=== PATIENT | male | born 2000 | race Two or more races ===

== ENCOUNTER 2019-05-30 18:14 | Emergency (ER) | payer OTHER ==
[~2019-05-30] VITALS: Ht 162.6 cm; Wt 72.6 kg
[2019-05-30 18:30] VITALS: BP 140/82
[2019-05-30] MEDS ORDERED: DiphenhydrAMINE 50mg/ml Inj IVP ONE (18:30)
[2019-05-30] MEDS ORDERED: Dexamethasone 4mg/ml vial IVP ONE (18:30)
--- NOTE | 2019-05-30 18:30 | NUR ---
ED Nurse Note: Patient arrived to ED from home c/o swollen lips after eating chicken wings. Patient has eaten this food before without any reaction. Patient did not experience shortness of breath or itching. Patient does not have any known allergies. Patient AxO x 4, no s/s of respiritory distress.
[2019-05-30] MEDS ORDERED: DiphenhydrAMINE 50mg/ml Inj IM ONE (18:45)
--- NOTE | 2019-05-30 19:13 | Emergency Room Report ---
History of Present Illness General Chief Complaint: Allergic Reaction Source: Patient Present Illness HPI 19-year-old male with no significant past medical history here complaining of swelling and upper lip that started after eating hot wings at a restaurant 20 minutes prior to arrival. Denies anaphylaxis, drooling, chest pain, shortness of breath, palpitation headache and dizziness. Reports that he did not take the medication however has noticed that the swelling has been subsiding. Patient speaking in full sentences, and no signs of anaphylaxis noted. Angioedema of upper lip noted. Does not know if he has history of allergic reaction in the past. Allergies: Coded Allergies: No Known Allergies (Unverified , 05/30/19) Patient History Past Medical History: see triage record Past Surgical History: unable to obtain Pertinent Family History: none Immunizations: UTD Reviewed Nursing Documentation: PMH: Agreed; PSxH: Agreed Nursing Documentation-PMH Past Medical History: No Stated History Review of Systems All Other Systems: negative except mentioned in HPI Physical Exam Vital Signs Date Time Temp Pulse Resp B/P (MAP) Pulse Ox O2 Delivery O2 Flow Rate FiO2 05/30/19 18:19 98.4 109 17 140/82 (101) 99 Room Air Sp02 EP Interpretation: reviewed, normal General Appearance: no apparent distress, alert, GCS 15, non-toxic Head: normocephalic, atraumatic Eyes: bilateral eye normal inspection, bilateral eye PERRL ENT: hearing grossly normal, normal pharynx, normal voice, TMs + canals normal , uvula midline, other - Angioedema upper lip Neck: full range of motion, supple, thyroid normal, no meningismus, supple/symm /no masses Respiratory: chest non-tender, lungs clear, normal breath sounds, no rhonchi, no wheezing, speaking full sentences Cardiovascular #1: regular rate, rhythm, no edema, no JVD Gastrointestinal: non tender, soft Rectal: deferred Musculoskeletal: back normal Neurologic: alert, motor strength/tone normal, oriented x3, sensory intact, responsive, speech normal Psychiatric: judgement/insight normal, memory normal, mood/affect normal, no suicidal/homicidal ideation Skin: no rash Lymphatic: no adenopathy Medical Decision Making PA Attestation All diagnoses and treatment plans were reviewed and discussed with my supervising physician Dr. Warner Diagnostic Impression: Primary Impression: Allergic reaction Additional Impression: Angio-edema ER Course 19-year-old male with no significant past medical history here complaining of swelling and upper lip that started after eating hot wings at a restaurant 20 minutes prior to arrival. Denies anaphylaxis, drooling, chest pain, shortness of breath, palpitation headache and dizziness. Reports that he did not take the medication however has noticed that the swelling has been subsiding. Patient speaking in full sentences, and no signs of anaphylaxis noted. Angioedema of upper lip noted. Does not know if he has history of allergic reaction in the past. Ddx considered but are not limited to : Anaphylaxis, allergic urticaria, angioedema, cellulitis, Vital signs: are WNL, pt. is afebrile H&PE are most consistent with: Angioedema without anaphylaxis ORDERS: Prednisone, Benadryl ED INTERVENTIONS: Benadryl, dexamethasone DISCHARGE: At this time pt. is stable for d/c to home. Will provide printed patient care instructions, and any necessary prescriptions. Care plan and follow up instructions have been discussed with the patient prior to discharge. Take medication as directed, follow with primary care provider, if anaphylaxis, return to the emergency room. Also allergy testing to be done by primary care physician. Last Vital Signs Date Time Temp Pulse Resp B/P (MAP) Pulse Ox O2 Delivery O2 Flow Rate FiO2 05/30/19 18:19 98.4 109 17 140/82 (101) 99 Room Air Disposition: HOME, SELF-CARE Condition: Stable Scripts Diphenhydramine Hcl (BENADRYL ALLERGY) 25 Mg Tablet 25 MG PO BID, #20 TAB Prov: Ene Maya 05/30/19 Prednisone* (PREDNISONE*) 20 Mg Tablet 40 MG ORAL DAILY for 5 Days, #10 TAB Prov: Ene Maya 05/30/19 Patient Instructions: Allergies, Angioedema, [id number] Additional Instructions: Take medication as directed, avoid allergens, follow-up with your primary care provider for allergy testing as well as sending you to nib adjuster. If anaphylaxis, difficulty breathing swallowing return to the emergency room. Increase oral hydration. Ene Maya May 30, 2019 19:13
[2019-05-30] MEDS ORDERED: PREDNISONE20 MG ORAL (19:15)
[2019-05-30] MEDS ORDERED: BENADRYL ALLERG25 M1 PO (19:15)
[2019-05-30 19:20] VITALS: BP 140/82
--- NOTE | 2019-05-30 19:20 | NUR ---
ER DISCHARGE NOTE: Patient is cleared to be discharged per ERMD, pt is aox4, on room air, with stable vital signs. pt was given dc and prescription instructions, pt was able to verbalize understanding, pt id band removed. pt is able to ambulate with steady gait. pt took all belongings.
== END 2019-05-30 19:20 | disposition home or self-care (01) ==
LOC: EMR 18:40
DX: T78.1XXA Other adverse food reactions, not elsewhere classified, initial encounter (principal); T78.3XXA Angioneurotic edema, initial encounter; X58.XXXA Exposure to other specified factors, initial encounter
CPT/HCPCS: 96372; 96374; 96375; 99284; J1100; J1200